=== PATIENT | female | born 1990 | race Caucasian/White ===

== ENCOUNTER 2017-01-22 09:43 | Emergency (ER) | payer SELFPAY ==
[~2017-01-22] VITALS: Ht 165.1 cm; Wt 95.5 kg
[2017-01-22 09:52] VITALS: BP 121/68; TEMP 98.6
[2017-01-22 11:14] VITALS: PULSE 100
== END 2017-01-22 11:15 | disposition home or self-care (01) ==
LOC: COL.ER 09:43
DX: S93.401A Sprain of unspecified ligament of right ankle, initial encounter (principal); X58.XXXA Exposure to other specified factors, initial encounter

== ENCOUNTER 2017-10-14 12:44 | Emergency (ER) | payer SELFPAY ==
[~2017-10-14] VITALS: Ht 157.5 cm; Wt 105.9 kg
[2017-10-14 12:48] VITALS: BP 137/69; TEMP 98.9
[2017-10-14 13:56] VITALS: PULSE 96
== END 2017-10-14 13:56 | disposition home or self-care (01) ==
LOC: COL.ER 12:44
DX: R20.2 Paresthesia of skin (principal); F41.9 Anxiety disorder, unspecified